=== PATIENT | male | born 1960 | race American Indian/Alaskan Native ===

== ENCOUNTER 2017-05-12 04:52 | Emergency (ER) | payer MEDICAID ==
[2017-05-12 05:06] VITALS: BMI 29.5
[2017-05-12 05:09] VITALS: RESP 18; TEMP 97.3
--- NOTE | 2017-05-12 06:05 | ED PDOC ---
HPI: CCC, URI, Sore Throat Chief Complaint (Provider): sore throat History Per: Patient History/Exam Limitations: no limitations Onset/Duration Of Symptoms: Other (2 weeks ) Current Symptoms Are (Timing): Intermittent Episodes Location Of Pain: Throat <Carlotta Telles - Last Filed: 05/12/17 06:37> <Paulino Concepcion - Last Filed: 05/12/17 07:29> Time Seen by Provider: 05/12/17 05:58 Chief Complaint (Nursing): ENT Problem Additional Complaint(s): 56 yo ,m, PMhx/o Depression, Bipolar Disorder presents to ED c/o sore throat for the last 2 weeks, intermittent episodes, worse when swallowing food, but able to swallow and eat. She denies fever, cough, nasal congestion , chest pain , SOB, dysphagia. Patient reports her sister got also sick with sore throat and she is concerned to have strep A infection PMD: no PMD (Carlotta Telles) Supervising Attending Note - Attestation: I have personally seen and examined this patient.: Yes I have fully participated in the care of the patient.: Yes I have reviewed all pertinent clinical information, including history, physical exam and plan: Yes <Paulino Concepcion - Last Filed: 05/12/17 07:29> Past Medical History Reviewed: Historical Data, Nursing Documentation, Vital Signs - Medical History PMH: Anxiety, Bipolar Disorder, Depression Denies: HIV, HTN, Seizures, Sexually Transmitted Disease - Family History Family History: States: Diabetes - Social History Alcohol: None Drugs: Denies <Carlotta Telles - Last Filed: 05/12/17 06:37> <Paulino Concepcion - Last Filed: 05/12/17 07:29> Vital Signs: Last Vital Signs Temp 97.3 F L 05/12/17 05:06 Pulse 85 05/12/17 05:06 Resp 18 05/12/17 05:06 BP 150/92 H 05/12/17 05:06 Pulse Ox 99 05/12/17 06:37 - Allergies Allergies/Adverse Reactions: Allergies Allergy/AdvReac Type Severity Reaction Status Date / Time No Known Allergies Allergy Verified 05/12/17 05:06 Curb-65 Severity Score - CURB-65 Severity Score Confusion: No Bun >19mg/dl (>7mmol/L): No Respiratory Rate greater than/equal to 30: No Systolic BP <90 or Diastolic BP less than/equal 60mmHg: No Age >64: No Curb-65 Score: 0 Percentage 30-day mortality: 0.6% <JessicaCarlotta maxwell - Last Filed: 05/12/17 06:37> Review of Systems ROS Statement: Except As Marked, All Systems Reviewed And Found Negative ENT: Positive for: Throat Pain <Carlotta Telles - Last Filed: 05/12/17 06:37> Physical Exam - Physical Exam Appears: Positive for: Non-toxic, No Acute Distress Head Exam: Positive for: ATRAUMATIC, NORMOCEPHALIC Skin: Positive for: Normal Color Eye Exam: Positive for: Normal appearance ENT: Positive for: Normal ENT Inspection, TM Is/Are (normal ). Negative for: Nasal Congestion, Tonsillar Exudate, Tonsillar Swelling Neck: Positive for: Normal (no cervical lymph nodes), Painless ROM, Supple Cardiovascular/Chest: Positive for: Regular Rate, Rhythm. Negative for: Murmur Respiratory: Positive for: Normal Breath Sounds. Negative for: Crackles, Rales , Rhonchi, Wheezing Gastrointestinal/Abdominal: Positive for: Soft. Negative for: Tenderness, Distended, Guarding, Rebound Back: Positive for: Normal Inspection Extremity: Positive for: Normal ROM. Negative for: Tenderness, Pedal Edema, Calf Tenderness Neurologic/Psych: Positive for: Alert, Oriented. Negative for: Motor/Sensory Deficits <Carlotta Telles - Last Filed: 05/12/17 06:37> - ECG O2 Sat by Pulse Oximetry: 99 <Carlotta Telles - Last Filed: 05/12/17 06:37> Medical Decision Making <Carlotta Telles - Last Filed: 05/12/17 06:37> <Paulino Concepcion - Last Filed: 05/12/17 07:29> Medical Decision Makin:10 Impression Sore throat unspecified Plan Strep Test (Carlotta Telles) Disposition - Disposition Disposition Time: 06:35 <Carlotta Telles - Last Filed: 05/12/17 06:37> <Paulino Concepcion - Last Filed: 05/12/17 07:29> - Clinical Impression Clinical Impression: Throat pain, Sore throat - Disposition Condition: GOOD Forms: [employer] (Portuguese)
[2017-05-12 09:13] VITALS: BP 146/81; PULSE 79; O2SAT 100
== END 2017-05-12 09:11 | disposition home or self-care (01) ==
LOC: H.ER 04:52
DX: J02.9 Acute pharyngitis, unspecified (principal)